=== PATIENT | male | born 1985 | race Caucasian/White ===

== ENCOUNTER 2016-12-02 08:15 | Emergency (ER) | payer BC, OTHER ==
[2016-12-02 09:09] VITALS: BP 136/89
[2016-12-02] MEDS ORDERED: Naproxen TAB* 250 MG PO ONE (09:29)
--- NOTE | 2016-12-02 09:41 | UC ---
Back Pain HPI - HPI Summary HPI Summary: 31 yo male with low back pain x 2 days onset after stacking wood and yard work no radiation of pain no bowel/bladder dysfunction - History of Current Complaint Chief Complaint: UCBackPain Stated Complaint: BACK PAIN Time Seen by Provider: 12/02/16 09:15 Hx Obtained From: Patient Onset/Duration: Gradual Onset, Lasting Days Timing: Constant Severity Initially: Moderate Severity Currently: Moderate Pain Intensity: 6 Pain Scale Used: 0-10 Numeric Back Pain: Is Diffuse Character: Aching, Throbbing, Spasmodic Aggravating: Movement, Lifting, Bending Alleviating: Rest Associated Signs And Symptoms: Positive: Negative - Allergies/Home Medications Allergies/Adverse Reactions: Allergies Allergy/AdvReac Type Severity Reaction Status Date / Time No Known Allergies Allergy Verified 12/02/16 09:03 PMH/Surg Hx/FS Hx/Imm Hx Previously Healthy: Yes - hx penis fracture Endocrine History Of: Denies: Diabetes, Thyroid Disease Cardiovascular History Of: Denies: Cardiac Disorders, Hypertension Respiratory History Of: Reports: Asthma Denies: COPD GI/ History Of: Denies: Ulcer - Surgical History Surgical History: Yes Surgery Procedure, Year, and Place: repair of a "sliding testicle" ... torsion repair, [facility] – [place], 2003 - Family History Known Family History: Positive: Cardiac Disease, Hypertension, Diabetes, Other - colon CA - Social History Alcohol Use: Weekly Substance Use Type: None Smoking Status (MU): Former Smoker Amount Used/How Often: ~ 1 ppd Length of Time of Smoking/Using Tobacco: started ~ age 20 - Immunization History Most Recent Influenza Vaccination: Fall 2014 Review of Systems Constitutional: Negative Skin: Negative Eyes: Negative ENT: Negative Respiratory: Negative Cardiovascular: Negative Gastrointestinal: Negative Genitourinary: Negative Motor: Negative Neurovascular: Negative Musculoskeletal: Myalgia Neurological: Negative Psychological: Negative All Other Systems Reviewed And Are Negative: Yes Physical Exam Triage Information Reviewed: Yes Appearance: Well-Appearing, No Pain Distress, Well-Nourished Vital Signs: Initial Vital Signs Temp 97.8 F 12/02/16 08:58 Pulse 56 12/02/16 08:58 Resp 18 12/02/16 08:58 BP 136/89 12/02/16 08:58 Pulse Ox 99 12/02/16 08:58 Vital Signs Reviewed: Yes Eyes: Positive: Conjunctiva Clear ENT: Positive: Hearing grossly normal. Negative: Nasal congestion, Nasal drainage, Trismus, Muffled/hoarse voice Dental Exam: Normal Neck: Positive: Supple Respiratory: Positive: Lungs clear, Normal breath sounds, No respiratory distress, No accessory muscle use Cardiovascular: Positive: RRR, No Murmur Musculoskeletal: Positive: ROM Intact, No Edema Neurological: Positive: Alert, Muscle Tone Normal Psychological Exam: Normal Skin Exam: Normal Back Pain Course/Dx - Differential Dx/Diagnosis Provider Diagnoses: lumbar myofascial strain/spasm Discharge - Discharge Plan Condition: Stable Disposition: HOME Prescriptions: Cyclobenzaprine TAB* [Flexeril TAB*] 5 mg PO TID PRN #21 tab PRN Reason: Spasms HYDROcodone/ACETAMIN 5-325 MG* [Durant 5-325 TAB*] 1 tab PO Q4H PRN #10 tab MDD 2 PRN Reason: Pain Patient Education Materials: Low Back Strain (ED) Forms: *Work Release Referrals: Sarwat Alarcon MD [Primary Care Provider] - 2 Weeks Additional Instructions: PT consult recheck for new or worsening symptoms Images Front/Back of Body, Lg ([place]): 1 - tender (no midline josé tenderness). decreased ROM. (-) SLR. slow wide based gait
== END 2016-12-02 10:00 | disposition home or self-care (01) ==
LOC: UCEAST 08:15
DX: S39.012A Strain of muscle, fascia and tendon of lower back, initial encounter (principal); X50.3XXA Overexertion from repetitive movements, initial encounter; Y93.89 Activity, other specified; Y92.9 Unspecified place or not applicable; M62.830 Muscle spasm of back; J45.909 Unspecified asthma, uncomplicated; Z87.891 Personal history of nicotine dependence
CPT/HCPCS: 99212; A9270-GY; G0463

== ENCOUNTER 2018-06-22 14:21 | Emergency (ER) | payer OTHER ==
[2018-06-22 14:33] VITALS: BP 145/99
--- NOTE | 2018-06-22 14:46 | UC ---
Respiratory Complaint HPI - HPI Summary HPI Summary: The patient is a 32 yo male with a 3-4 day hx of fever/chills, cough and myalgias Sever myalgias no CP or SOB has asthma no wheezing...has not had to use his rescue inhaler slight chest tightness no n/v/d - History of Current Complaint Chief Complaint: UCRespiratory Stated Complaint: ELEVATED TEMP Time Seen by Provider: 06/22/18 14:35 Hx Obtained From: Patient Onset/Duration: Gradual Onset, Lasting Days Timing: Constant Severity Initially: Mild Severity Currently: Severe Pain Intensity: 8 Pain Scale Used: 0-10 Numeric Character: Cough: Productive - green Aggravating Factors: Deep Breaths Alleviating Factors: Nothing Associated Signs And Symptoms: Positive: Fever, Chills, Nasal Congestion. Negative: Wheezing, Hemoptysis, Dizziness, Calf Pain, Calf Swelling, Edema, URI , Hoarseness, Sinus Discomfort - Allergies/Home Medications Allergies/Adverse Reactions: Allergies Allergy/AdvReac Type Severity Reaction Status Date / Time shellfish derived Allergy Severe lip Verified 06/22/18 14:34 swelling and itching Home Medications: Home Medications Acetaminophen TAB* [Tylenol TAB*] 325 mg PO Q4H PRN 06/22/18 [History Confirmed 06/22/18] D-Methorphan/PE/Acetaminophen [Vicks Dayquil Cold & Flu 10-5-325 mg/15Ml] 1 liq PO Q6H PRN 06/22/18 [History Confirmed 06/22/18] PMH/Surg Hx/FS Hx/Imm Hx Previously Healthy: Yes Respiratory History: Asthma, Bronchitis GI/ History: Other Other GI/ History: testicular torsion and penile fracture - Surgical History Surgical History: Yes Surgery Procedure, Year, and Place: testicular torsion repair, [facility] [place], 2003 - Family History Known Family History: Positive: Cardiac Disease, Hypertension, Diabetes, Other - colon CA - Social History Alcohol Use: Weekly Alcohol Amount: 1 drink/wk Substance Use Type: None Smoking Status (MU): Former Smoker Amount Used/How Often: ~ 1 ppd Length of Time of Smoking/Using Tobacco: started ~ age 20 Have You Smoked in the Last Year: No - Immunization History Most Recent Influenza Vaccination: Fall 2014 Review of Systems All Other Systems Reviewed And Are Negative: Yes Constitutional: Positive: Fever, Chills Skin: Positive: Negative Eyes: Positive: Negative ENT: Positive: Negative Respiratory: Positive: Cough Cardiovascular: Positive: Negative Gastrointestinal: Positive: Negative Genitourinary: Positive: Negative Motor: Positive: Negative Neurovascular: Positive: Negative Musculoskeletal: Positive: Myalgia Neurological: Positive: Negative Psychological: Positive: Negative Physical Exam Triage Information Reviewed: Yes Appearance: Well-Appearing, No Pain Distress, Well-Nourished Vital Signs: Initial Vital Signs Temp 101.9 F 06/22/18 14:30 Pulse 105 06/22/18 14:30 Resp 14 06/22/18 14:30 BP 145/99 06/22/18 14:30 Pulse Ox 97 06/22/18 14:30 Vital Signs Reviewed: Yes Eyes: Positive: Conjunctiva Clear ENT: Positive: Hearing grossly normal, Pharynx normal, Nasal congestion, TMs normal, Uvula midline. Negative: Nasal drainage, Tonsillar swelling, Tonsillar exudate, Trismus, Muffled voice, Hoarse voice, Dental tenderness, Sinus tenderness Dental Exam: Normal Neck: Positive: Supple, Nontender Respiratory: Positive: Lungs clear, Normal breath sounds, No respiratory distress, No accessory muscle use, Other: - bronchospastic cough and slight wheeze with forced expiration Cardiovascular: Positive: RRR, No Murmur Musculoskeletal: Positive: ROM Intact, No Edema Neurological: Positive: Alert, Muscle Tone Normal Psychological Exam: Normal Skin Exam: Normal UC Diagnostic Evaluation - Laboratory O2 Sat by Pulse Oximetry: 97 - normal/not hypoxic Respiratory Course/Dx - Differential Dx/Diagnosis Provider Diagnoses: acute bronchitis Discharge - Sign-Out/Discharge Documenting (check all that apply): Patient Departure All imaging exams completed and their final reports reviewed: No Studies - Discharge Plan Condition: Stable Disposition: HOME Prescriptions: Azithromycin TAB* [Zithromax TAB*] 250 mg PO DAILY #6 tab predniSONE [Deltasone 20 MG TAB] 40 mg PO DAILY #10 tab Patient Education Materials: Acute Bronchitis (ED) Referrals: Rito Pham PA [Primary Care Provider] - 2 Weeks (recheck in 2-98 weeks, your BP was a little high here 145/99) Additional Instructions: recheck for worsening symptoms recheck in 48 hours if still running a fever - Billing Disposition and Condition Condition: STABLE Disposition: Home
== END 2018-06-22 14:54 | disposition home or self-care (01) ==
LOC: UCEAST 14:21
DX: J20.9 Acute bronchitis, unspecified (principal); Z87.891 Personal history of nicotine dependence
CPT/HCPCS: 99212; G0463